=== PATIENT | female | born 1995 | race African-American/Black ===

== ENCOUNTER 2017-11-09 11:46 | Emergency (ER) | payer MEDICAID ==
[~2017-11-09] VITALS: Ht 162.6 cm; Wt 50.0 kg
[2017-11-09] MEDS ORDERED: QUET25TA PO (11:54)
[2017-11-09] MEDS ORDERED: SODIUM CHLORIDE 0.9% 1,000 ML IV ONE (12:20)
[2017-11-09 13:55] LABS: HCG SCREEN NEGATIVE
[2017-11-09 13:56] LABS: CHLORIDE 107 mEq/L (98-107)
[2017-11-09 13:57] LABS: BASOPHILS % 0.4 % (0.0-2.0); EOSINOPHILS % 1.2 % (0.0-5.0); HEMATOCRIT. 34.7 % (36.0-48.0); HEMOGLOBIN. 11.3 g/dL (12.0-16.0); MEAN CORPUSCULAR HEMOGLOBIN 26.8 pg (28.0-32.0); MEAN CORPUSCULAR VOLUME 82.6 fL (81.0-99.0); MEAN PLATELET VOLUME 6.7 fl (7.4-10.4); MONOCYTES % 5.6 % (2.0-8.0); NEUTROPHILS % 73.8 % (40.0-76.0); PLATELET 361 x1000/uL (130-400); RED CELL DISTRIBUTION WIDTH 15.8 % (11.6-14.6)
[2017-11-09 14:00] LABS: ETHANOL BLOOD < 10 mg/dL; INR 1.1; PROTHROMBIN TIME 11.3 sec (9.1-11.1)
[2017-11-09 14:59] LABS: CLARITY URINE CLEAR (CLEAR); COLOR URINE YELLOW (YELLOW); KETONES URINE NEGATIVE (NEGATIVE); LEUKOCYTE ESTERASE URINE TRACE (NEGATIVE); NITRITE URINE NEGATIVE (NEGATIVE); OCCULT BLOOD URINE NEGATIVE (NEGATIVE); PH URINE 6.5 (4.5-8.0); PROTEIN URINE NEGATIVE (NEGATIVE); SPECIFIC GRAVITY URINE 1.023 (1.005-1.030); UROBILINOGEN URINE 0.2 E.U./dL (0.2-1.0)
[2017-11-09 15:19] LABS: *BARBITURATES SCREEN URINE NEGATIVE (NEGATIVE); *BENZODIAZEPINES SCREEN URINE NEGATIVE (NEGATIVE); *COCAINE SCREEN URINE NEGATIVE (NEGATIVE); METHADONE URINE SCREEN NEGATIVE (NEGATIVE); OPIATES URINE SCREEN NEGATIVE (NEGATIVE)
[2017-11-09 15:20] LABS: PHENCYCLIDINE URINE SCREEN NEGATIVE (NEGATIVE)
[2017-11-09 15:41] LABS: *AMPHETAMINES SCREEN URINE PRESUMTIVE POSITIVE (NEGATIVE); CANNABINOID URINE SCREEN PRESUMTIVE POSITIVE (NEGATIVE)
[2017-11-09 16:27] VITALS: BP 105/60
== END 2017-11-09 16:31 | disposition home or self-care (01) ==
LOC: ER 12:07
DX: T18.9XXA Foreign body of alimentary tract, part unspecified, initial encounter (principal); R06.02 Shortness of breath; F12.10 Cannabis abuse, uncomplicated; M54.9 Dorsalgia, unspecified; R55 Syncope and collapse; X58.XXXA Exposure to other specified factors, initial encounter
CPT/HCPCS: 36415; 71045; 74018; 80053; 80305; 80307; 80329; 81003; 81025; 83690; 84703; 85025; 85610; 85730; 93005; 96360; 96361; 99285; G0482; J7030

== ENCOUNTER 2018-10-04 23:55 | Emergency (ER) | payer MEDICAID ==
[~2018-10-04] VITALS: Ht 170.2 cm; Wt 48.0 kg
[~2018-10-04 23:55] MED LIST: QUET25TA PO
[2018-10-05 07:00] VITALS: BP 108/62
== END 2018-10-05 07:20 | disposition home or self-care (01) ==
LOC: ER 23:55
DX: F15.129 Other stimulant abuse with intoxication, unspecified (principal); Z59.0 Homelessness; Z79.899 Other long term (current) drug therapy
CPT/HCPCS: 99283